=== PATIENT | female | born 1995 | race Caucasian/White ===

== ENCOUNTER 2017-11-25 15:30 | Observation (INO) | payer OTHER ==
[~2017-11-25] VITALS: Ht 152.4 cm; Wt 64.0 kg
[2017-11-25 16:11] VITALS: BP 118/62
== END 2017-11-25 17:25 | disposition home or self-care (01) ==
LOC: MLD 15:30
PROVIDERS: ADMIT Obstetrics & Gynecology; ATTEND Obstetrics & Gynecology
DX: Z34.92 Encounter for supervision of normal pregnancy, unspecified, second trimester (principal); Z3A.24 24 weeks gestation of pregnancy
CPT/HCPCS: 59025; 81000; G0378

== ENCOUNTER 2018-02-28 08:39 | Inpatient (IN) | payer OTHER ==
[~2018-02-28] VITALS: Ht 154.9 cm; Wt 71.2 kg
[2018-02-28] MEDS ORDERED: TERBUTALINE 1 MG/ML VIAL SUBQ SCH (09:50)
[2018-02-28] MEDS ORDERED: TERBUTALINE 1 MG/ML VIAL SUBQ ONE (10:00)
[2018-02-28] MEDS ORDERED: NALBUPHINE 10 MG/ML AMP IVP PRN (11:05)
[2018-02-28 11:09] VITALS: BP 145/86
[2018-02-28 11:23] LABS: BASOPHILS % (AUTO) 0.3 % (0.0-2.0); EOSINOPHILS % (AUTO) 0.2 % (0.0-4.0); HEMATOCRIT 37.5 % (36-48); HEMOGLOBIN 12.7 g/dL (12.0-16.0); LYMPHOCYTES # (AUTO) 3.5 K/uL (2.5-16.5); LYMPHOCYTES % (AUTO) 28.1 % (20.5-51.1); MEAN CORPUSCULAR HEMOGLOBIN 32 pg (27-31); MEAN CORPUSCULAR HGB CONC 34 g/dL (33-37); MEAN CORPUSCULAR VOLUME 95.1 fL (80-94); MONOCYTES # (AUTO) 0.7 K/uL (0.8-1.0); NEUTROPHILS # (AUTO) 8.1 K/uL (1.8-7.7); NEUTROPHILS % (AUTO) 65.4 % (42.2-75.2); PLATELET COUNT (AUTO) 153 K/uL (140-450); RED BLOOD CELL COUNT(AUTO) 3.94 MIL/uL (4.20-5.40); RED CELL DISTRIBUTION WIDTH 12.6 % (11.6-13.7); WHITE BLOOD COUNT (AUTO) 12.4 K/uL (4.8-10.8)
[2018-02-28 11:43] LABS: APPEARANCE,URINE CLEAR (CLEAR); BILIRUBIN,URINE NEGATIVE (NEGATIVE); BLOOD, URINE 1+ (NEGATIVE); COLOR,URINE YELLOW (YELLOW); LEUKOCYTE ESTERASE ,URINE NEGATIVE (NEGATIVE); NITRITE, URINE NEGATIVE (NEGATIVE); UGLUCOSE NEGATIVE (NEGATIVE)
[2018-02-28 11:45] LABS: PROTHROMBIN TIME 8.8 secs (10.8-13.4)
[2018-02-28 11:46] LABS: ALBUMIN 2.4 g/dL (3.4-5.0); ANION GAP 15.4 (8-16); CARBON DIOXIDE 19.5 mmol/L (21-32); CREATININE 0.9 mg/dL (0.6-1.3); TOTAL BILIRUBIN 0.7 mg/dL (0.0-1.0)
[2018-02-28 11:52] LABS: RBC,URINE 0-5 (RARE) /HPF (0-5); WBC,URINE 0-5 (RARE) /HPF (0-5)
[2018-02-28 12:04] LABS: POTASSIUM 2.9 mmol/L (3.5-5.1)
[2018-02-28] MEDS: LACTATED RINGERS 1,000 ML IV SCH ×2 (17:39→23:17)
[2018-02-28 19:37] VITALS: BP 124/75
[2018-02-28] MEDS ORDERED: BUPIVACAINE 0.125%/NS PREMIX 250 ML ONE (23:00)
[2018-03-01] MEDS ORDERED: LIDOCAINE 2% 1000 MG/50 ML VIAL INJ ONE ×2 (03:25→05:42)
[2018-03-01] MEDS ORDERED: OXYTOCIN 10 UNITS/ML VIAL IM ONE (03:25)
[2018-03-01] MEDS ORDERED: OXYTOCIN 20 UNITS in LACTATED RINGERS 1,000 ML IV SCH ×2 (03:25→13:03)
[2018-03-01] MEDS ORDERED: OXYTOCIN 10 UNITS/ML VIAL ONE (05:41)
[2018-03-01] MEDS ORDERED: OXYTOCIN 20 UNITS/LR PREMIX 1,000 ML IV ONE (05:41)
[2018-03-01] MEDS: LACTATED RINGERS 1,000 ML IV SCH (07:30)
--- NOTE | 2018-03-01 08:37 | NUR ---
PATIENT HAS BEEN SCREENED AND CATEGORIZED LOW NUTRITION RISK. PATIENT WILL BE SEEN WITHIN 7 DAYS OF ADMISSION. 03/06/[address]
[2018-03-01] MEDS ORDERED: BENZOCAINE/MENTHOL 20%-0.5% 60 GM CAN TP PRN (13:05)
[2018-03-01] MEDS ORDERED: MEASLES, MUMPS, AND RUBELLA 1 VIAL SQVAC PRN (13:05)
[2018-03-01] MEDS: ACETAMINOPHEN 325 MG TAB PO PRN (17:00)
[2018-03-01] MEDS: IBUPROFEN 600 MG TAB PO PRN (20:06)
[2018-03-02] MEDS: ACETAMINOPHEN 325 MG TAB PO PRN ×2 (02:07→12:48)
[2018-03-02] MEDS ORDERED: INFLUENZA VIRUS VACCINE QUAD 0.5 ML SYR IMVAC PRN (03:35)
[2018-03-02] MEDS ORDERED: INFLUENZA VIRUS VACCINE QUAD 0.5 ML SYR IMVAC ONE (03:48)
[2018-03-02] MEDS: IBUPROFEN 600 MG TAB PO PRN ×2 (07:43→19:42)
[2018-03-02 10:01] LABS: BASOPHILS % (AUTO) 0.3 % (0.0-2.0); EOSINOPHILS % (AUTO) 0.2 % (0.0-4.0); HEMATOCRIT 26.5 % (36-48); HEMOGLOBIN 9.1 g/dL (12.0-16.0); LYMPHOCYTES # (AUTO) 2.6 K/uL (2.5-16.5); LYMPHOCYTES % (AUTO) 16.3 % (20.5-51.1); MEAN CORPUSCULAR HEMOGLOBIN 33 pg (27-31); MEAN CORPUSCULAR HGB CONC 34 g/dL (33-37); MEAN CORPUSCULAR VOLUME 95.7 fL (80-94); MONOCYTES # (AUTO) 0.9 K/uL (0.8-1.0); MONOCYTES % (AUTO) 5.5 % (1.7-9.3); NEUTROPHILS # (AUTO) 12.2 K/uL (1.8-7.7); NEUTROPHILS % (AUTO) 77.7 % (42.2-75.2); PLATELET COUNT (AUTO) 129 K/uL (140-450); RED BLOOD CELL COUNT(AUTO) 2.77 MIL/uL (4.20-5.40); RED CELL DISTRIBUTION WIDTH 12.5 % (11.6-13.7); WHITE BLOOD COUNT (AUTO) 15.7 K/uL (4.8-10.8)
== END 2018-03-03 16:55 | disposition home or self-care (01) | DRG 560 ==
LOC: MLD 08:39 → MFCC 03-01 13:30
PROVIDERS: ADMIT Obstetrics & Gynecology; ATTEND Obstetrics & Gynecology
PROC: 10E0XZZ Delivery of Products of Conception, External Approach (ICD-10-PCS; principal; 2018-03-01)
PROC: 0HQ9XZZ Repair Perineum Skin, External Approach (ICD-10-PCS; 2018-03-01)
PROC: 00HU33Z Insertion of Infusion Device into Spinal Canal, Percutaneous Approach (ICD-10-PCS; 2018-03-01)
PROC: 3E0R3BZ Introduction of Anesthetic Agent into Spinal Canal, Percutaneous Approach (ICD-10-PCS; 2018-03-01)
PROC: 3E0234Z Introduction of Serum, Toxoid and Vaccine into Muscle, Percutaneous Approach (ICD-10-PCS; 2018-03-02)
PROC: 3E0234Z Introduction of Serum, Toxoid and Vaccine into Muscle, Percutaneous Approach (ICD-10-PCS; 2018-03-02)
DX: O77.0 Labor and delivery complicated by meconium in amniotic fluid (principal); O70.0 First degree perineal laceration during delivery; Z37.0 Single live birth; Z3A.37 37 weeks gestation of pregnancy; Z23 Encounter for immunization
CPT/HCPCS: 36415; 51702; 59409; 76815; 80053; 81001; 85025; 85379; 85384; 85610; 85730; 86592; 86886; 86900; 86901; 90658; 90715; J2001; J2590; J3105; J3490; J7120; Q0092